=== PATIENT | male | born 1955 | race Caucasian/White ===

== ENCOUNTER → 2016-04-30 | Outpatient (REF) | payer BC ==
[2016-04-30 11:29] LABS: MEAN CORPUSCULAR HEMOGLOBIN 29.1 pg (27.0-33.0); MEAN CORPUSCULAR HGB CONC 32.3 g/dl (32.0-36.5); MEAN CORPUSCULAR VOLUME 90.2 fl (80.0-96.0); RED CELL DISTRIBUTION WIDTH 13.5 % (11.5-14.5); WHITE BLOOD COUNT 8.1 K/mm3 (4.0-10.0)
[2016-04-30 12:05] LABS: ALBUMIN 4.3 GM/DL (3.2-5.2); ALBUMIN/GLOBULIN RATIO 1.34 (1.00-1.93); ALKALINE PHOSPHATASE 92 U/L (45-117); ALT/SGPT 34 U/L (12-78); ANION GAP 7 MEQ/L (8-16); AST/SGOT 23 U/L (15-37); BILIRUBIN,TOTAL 0.5 MG/DL (0.2-1.0); BLOOD UREA NITROGEN 23 MG/DL (7-18); CALCIUM LEVEL 9.4 MG/DL (8.5-10.1); CARBON DIOXIDE LEVEL 29 MEQ/L (21-32); CHLORIDE LEVEL 106 MEQ/L (98-107); CHOLESTEROL LEVEL 240 MG/DL (<200); CREATININE FOR GFR 1.03 MG/DL (0.70-1.30); GLOMERULAR FILTRATION RATE > 60.0 (>56); GLUCOSE, FASTING 116 MG/DL (70-105); POTASSIUM SERUM 4.4 MEQ/L (3.5-5.1); SODIUM LEVEL 142 MEQ/L (136-145); TOTAL PROTEIN 7.5 GM/DL (6.4-8.2); TRIGLYCERIDES LEVEL 71 MG/DL (<150)
[2016-04-30 13:36] LABS: CONTROL LINE INT CTR LINE PRESENT; HIV SCRN NEGATIVE (NEGATIVE); HIV SCRN1 NEGATIVE (NEGATIVE)
== END ==
LOC: M SFHCCLAY 08:29
PROVIDERS: ATTEND Family Medicine
DX: R03.0 Elevated blood-pressure reading, without diagnosis of hypertension (principal); Z11.4 Encounter for screening for human immunodeficiency virus [HIV]; Z11.59 Encounter for screening for other viral diseases; Z85.46 Personal history of malignant neoplasm of prostate

== ENCOUNTER 2016-08-31 13:26 | Emergency (ER) | payer BC ==
[~2016-08-31] VITALS: Ht 182.9 cm; Wt 89.8 kg
[2016-08-31] MEDS ORDERED: CYCL10TA PO (13:42)
[2016-08-31] MEDS ORDERED: NAPR500T PO (13:42)
[2016-08-31] MEDS ORDERED: VALI5TAB PO (14:30)
[2016-08-31] MEDS ORDERED: KETOROLAC 60 MG/2 ML VIAL (J1885) IM ONE (14:30)
[2016-08-31] MEDS ORDERED: IBUP80TA PO (14:30)
[2016-08-31 14:58] VITALS: BP 183/90
== END 2016-08-31 15:05 | disposition home or self-care (01) ==
LOC: M ED 14:08
DX: S39.012A Strain of muscle, fascia and tendon of lower back, initial encounter (principal); X58.XXXA Exposure to other specified factors, initial encounter; Y92.018 Other place in single-family (private) house as the place of occurrence of the external cause; Y93.89 Activity, other specified; Y99.8 Other external cause status; Z79.899 Other long term (current) drug therapy
CPT/HCPCS: 96372; 99282; J1885

== ENCOUNTER 2016-11-07 08:55 | Emergency (ER) | payer BC ==
[~2016-11-07] VITALS: Ht 182.9 cm; Wt 86.4 kg
[~2016-11-07 08:55] MED LIST: CYCL10TA PO; IBUP80TA PO; NAPR500T PO; VALI5TAB PO
[2016-11-07] MEDS ORDERED: KETOROLAC 60 MG/2 ML VIAL (J1885) IM ONE (09:45)
[2016-11-07] MEDS ORDERED: MEDR4PAK PO (10:59)
[2016-11-07] MEDS ORDERED: NAPR500T3 PO (11:00)
[2016-11-07 11:19] VITALS: BP 143/91
--- NOTE | 2016-11-07 11:25 | REP ---
CT PELVIS WITHOUT CONTRAST: 11/07/2016. Clinical history: Pelvic pain with history of prostate carcinoma. Comparison: AP pelvis 11/06/2010. Findings: Noncontrast images through the pelvis with coronal and sagittal reconstructions provided. There is no ventral or inguinal hernia. No inguinal adenopathy. There are hernia mesh clips deep to the fascia of the left rectus and inguinal region. No bowel herniation. No diastases of the rectus muscles. Small bowel loops in the pelvis were unremarkable. The distal left colon, sigmoid and rectum are without inflammatory change. Multiple pelvic phleboliths. Bladder is nearly empty. There appears to have been prostatectomy. No pathologic sized pelvic lymphadenopathy. No ascites or mass. The bone windows show degenerative disc disease and disc space narrowing at L5-S1 with marginal osteophytes from L3-4 through L5-S1 anteriorly and posteriorly at L4-5. Disc bulge at L5-S1 is also noted. Vertebral bodies at those levels were unremarkable. There is some facet arthropathy. The bony sacral ala and foramina were symmetric and normal without destructive lesion. Minor sclerotic changes about the iliac margins of the SI joints were noted and otherwise unremarkable. The iliac bones, acetabuli and ischia are without fracture or destructive lesion. No sclerotic or destructive metastatic lesions. The hips show minor degenerative change without fracture, avulsion, AVN or other acute finding. No sclerotic bone lesions. Impression: 1. There is no CT evidence of ventral or inguinal hernia with a prior hernia repair on the left. 2. Evidence for prior prostatectomy, bladder empty, no dilated ureters or ureteral stone. 3. Degenerative disc changes greatest at L5-S1 in the lower lumbar spine with some facet arthropathy. No destructive lesions or metastatic bone lesions in the lumbar spine. 4. No pelvic, sacral or hip fracture or bony metastatic disease. Minor degenerative change. Signed by Baldemar Solano MD 11/07/2016 07:56 P
--- NOTE | 2016-11-07 11:31 | REP ---
CT LUMBAR SPINE WITHOUT CONTRAST: 11/07/2016. Clinical history: Lumbar radiculopathy. History of prostate carcinoma. Comparison: MRI lumbar spine 12/20/2014. Technique: Axial soft-tissue and bone windows with coronal and sagittal reconstructions provided. On the sagittal reconstructions. There is a few millimeters of anterolisthesis of L3 on 4 due to some facet arthritis. Disc space narrowing and vacuum phenomenon at that level. There is also vacuum phenomenon and disc space narrowing at the L5-S1 level. There is no anterolisthesis at that level. Disc space height at L4-5 and L2-3 slightly narrowed with the L1-2 level, the only normal disc height for spine. Spondylosis. There are anterior osteophytes at L3-4 through L5-S1. There are posterior osteophytes at L5-S1. There may be a couple of millimeters of retrolisthesis of L3 on 4. T12 vertebral body and the T12-L1 disc level were normal. There is no spinal or foraminal stenosis. Twelfth ribs were unremarkable. The L1 vertebral body intact without destructive lesion or compression deformity. The L1-2 disc space shows no bulge or herniation and no spinal or foraminal stenosis. At L2-3 there is mild disc bulge flattening ventral thecal sac. There appears to be a disc protrusion in the left foramen and left lateral disc. This could cause some foraminal encroachment on the left but not the right. At L3-4 there is ligamentum flavum and facet hypertrophy. A few millimeters of anterolisthesis and combining causes some central canal stenosis. Moderate foramina show encroachment with the bilateral L3 nerve root showing compression. The L4 vertebral body height is maintained. Broad-based disc bulge at L4-5 noted with the cross-sectional area of the canal marginally adequate. The foramina show some perineural fat without nerve root compression at this level. At L5-S1 posterior osteophytic ridging and broad-based disc bulge flattening the ventral thecal sac. Cross-sectional area of the canal adequate. The foramina show uncinate spurs, facet spurs, and encroachment of the L5 roots bilaterally due to these combined factors. No other findings. Impression: 1. Diffuse degenerative disc changes greatest at the L3-4 and L5-S1 with vacuum phenomenon and disc space narrowing at those two levels. Less narrowing at the L2-3 and L4-5 levels, none at L1-2. 2. No compression deformity or destructive lesions. No bony sclerotic findings to suggest metastatic disease. 3. A few millimeters of anterolisthesis of L3 on L4 and retrolisthesis of L4 on L5 due to facet arthropathy. 4. Broad-based disc bulge and left lateral disc protrusion at L2-3 causing central canal stenosis and foraminal encroachment likely compressing the L2 nerve root on the left. 5. Central canal stenosis greatest at L3-4 due to combined factors with some foraminal encroachment. 6. Mild central canal stenosis at L5-S1 with foraminal encroachment compressing L5 nerve roots due to combined factors. Signed by Baldemar Solano MD 11/07/2016 07:56 P
== END 2016-11-07 11:23 | disposition home or self-care (01) ==
LOC: M ED 08:55
DX: M54.16 Radiculopathy, lumbar region (principal); Z87.891 Personal history of nicotine dependence
CPT/HCPCS: 72131; 72192; 96372; 99282; J1885

== ENCOUNTER 2016-12-12 10:39 | Emergency (ER) | payer BC ==
[~2016-12-12] VITALS: Ht 182.9 cm; Wt 85.2 kg
[~2016-12-12 10:39] MED LIST changes: +MEDR4PAK PO; +NAPR500T3 PO
[2016-12-12] MEDS ORDERED: GABA-282 (10:52)
[2016-12-12] MEDS ORDERED: LEVI20TA39 (10:52)
[2016-12-12] MEDS ORDERED: TYLE325T5 PO (10:53)
[2016-12-12] MEDS ORDERED: NORCOTAB PO (13:30)
[2016-12-12] MEDS ORDERED: MIRA3350 PO (13:30)
[2016-12-12 13:40] VITALS: BP 126/84
== END 2016-12-12 13:40 | disposition home or self-care (01) ==
LOC: M ED 10:39
DX: M54.42 Lumbago with sciatica, left side (principal); M51.26 Other intervertebral disc displacement, lumbar region

== ENCOUNTER → 2017-05-06 | Outpatient (REF) | payer BC ==
[2017-05-06 17:45] LABS: ALBUMIN 4.4 GM/DL (3.2-5.2); ALBUMIN/GLOBULIN RATIO 1.69 (1.00-1.93); ALKALINE PHOSPHATASE 74 U/L (45-117); ALT/SGPT 29 U/L (12-78); ANION GAP 6 MEQ/L (8-16); AST/SGOT 22 U/L (7-37); BILIRUBIN,TOTAL 0.3 MG/DL (0.2-1.0); BLOOD UREA NITROGEN 16 MG/DL (7-18); CALCIUM LEVEL 9.1 MG/DL (8.5-10.1); CARBON DIOXIDE LEVEL 28 MEQ/L (21-32); CHLORIDE LEVEL 109 MEQ/L (98-107); CHOLESTEROL LEVEL 205 MG/DL (<200); CHOLESTEROL RISK RATIO 3.727 (<5); CREATININE FOR GFR 1.03 MG/DL (0.70-1.30); GLOMERULAR FILTRATION RATE > 60.0 (>56); GLUCOSE, FASTING 94 MG/DL (70-100); HDL CHOLESTEROL 55 MG/DL (>40); LDL CHOLESTEROL 132.6 MG/DL (<100); NON-HDL-C 150 MG/DL; POTASSIUM SERUM 5.1 MEQ/L (3.5-5.1); PSA SCREENING < 0.01 NG/ML (< 4.0); SODIUM LEVEL 143 MEQ/L (136-145); TRIGLYCERIDES LEVEL 87 MG/DL (<150)
== END ==
LOC: M SFHCCLAY 09:34
DX: Z00.00 Encounter for general adult medical examination without abnormal findings (principal); Z12.5 Encounter for screening for malignant neoplasm of prostate
CPT/HCPCS: 80053

== ENCOUNTER → 2017-05-07 | Outpatient (CLI) | payer BC ==
[2017-05-07 10:02] LABS: PSA SCREENING < 0.01 NG/ML (< 4.0)
== END ==
LOC: M LAB 08:57
DX: C61 Malignant neoplasm of prostate (principal)
CPT/HCPCS: G0103

== ENCOUNTER 2017-06-04 08:08 | Day surgery (SDC) | payer BC ==
[2017-06-04] MEDS: NS 1,000 ML IV (08:30)
[2017-06-04] MEDS ORDERED: PROPOFOL 200 MG/20 ML VIAL As Ordered (09:18)
== END 2017-06-04 09:58 | disposition home or self-care (01) ==
LOC: M SDC 08:08
DX: Z12.11 Encounter for screening for malignant neoplasm of colon (principal); Z80.0 Family history of malignant neoplasm of digestive organs; K57.30 Diverticulosis of large intestine without perforation or abscess without bleeding; K64.8 Other hemorrhoids; M54.9 Dorsalgia, unspecified; Z85.46 Personal history of malignant neoplasm of prostate
CPT/HCPCS: 45378

== ENCOUNTER → 2017-11-12 | Outpatient (CLI) | payer BC ==
[2017-11-12 14:12] LABS: PROSTATIC SPECIFIC AG MONITOR < 0.01 NG/ML (< 4.0)
== END ==
LOC: M LAB 13:11
DX: C61 Malignant neoplasm of prostate (principal)
CPT/HCPCS: 84153

== ENCOUNTER → 2018-05-06 | Outpatient (REF) | payer BC ==
[~2018-05-06] MED LIST changes: +GABA-843 PO; +LEVI20TA39 PO; +MIRA3350 PO; +NAPR-50 PO; +NAPR-885 PO; -NAPR500T PO; -NAPR500T3 PO; +NORCOTAB PO; +TYLE325T5 PO
[2018-05-06 16:52] LABS: ALBUMIN 4.2 GM/DL (3.2-5.2); ALT/SGPT 30 U/L (12-78); BILIRUBIN,TOTAL 0.6 MG/DL (0.2-1.0); BLOOD UREA NITROGEN 17 MG/DL (7-18); CALCIUM LEVEL 9.2 MG/DL (8.8-10.2); CARBON DIOXIDE LEVEL 27 MEQ/L (21-32); CHLORIDE LEVEL 106 MEQ/L (98-107); CHOLESTEROL LEVEL 203 MG/DL (<200); CHOLESTEROL RISK RATIO 2.985 (<5); CREATININE FOR GFR 0.94 MG/DL (0.70-1.30); GLOMERULAR FILTRATION RATE > 60.0 (>49); GLUCOSE, FASTING 94 MG/DL (70-100); HDL CHOLESTEROL 68 MG/DL (>40); LDL CHOLESTEROL 122 MG/DL (<100); NON-HDL-C 135 MG/DL; POTASSIUM SERUM 4.4 MEQ/L (3.5-5.1); SODIUM LEVEL 139 MEQ/L (136-145); TOTAL PROTEIN 7.2 GM/DL (6.4-8.2); TRIGLYCERIDES LEVEL 67 MG/DL (<150)
== END ==
LOC: M SFHCCLAY 11:17
PROVIDERS: ATTEND Family Medicine
DX: Z00.01 Encounter for general adult medical examination with abnormal findings (principal); E78.00 Pure hypercholesterolemia, unspecified

== ENCOUNTER → 2018-05-07 | Outpatient (CLI) | payer BC | LOC: M LAB 09:57 | PROVIDERS: ATTEND Urology | DX: C61 Malignant neoplasm of prostate (principal) ==

== ENCOUNTER → 2018-06-24 | Outpatient (CLI) | payer BC ==
--- NOTE | 2018-06-24 11:15 | REP ---
Left toe series: Four views. History: Monarticular arthritis left second toe. Findings: Multiple views of the left forefoot show moderate osteoarthritic narrowing and sclerosis and spur formation at the first MTP joint. There is soft tissue swelling affecting the second toe diffusely. No erosive change is seen. Joint spaces are preserved. There is a small zone of periarticular calcification at the medial aspect of the DIP joint of the second toe. Impression: Soft-tissue swelling affecting the second toe. A tiny periarticular calcification at the second toe DIP joint. No erosive change seen. 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 Electronically Signed by Luke Keita MD 06/24/2018 02:10 P
== END ==
LOC: M CLY 08:03
PROVIDERS: ATTEND Family Medicine
DX: M19.072 Primary osteoarthritis, left ankle and foot (principal)

== ENCOUNTER → 2019-05-12 | Outpatient (REF) | payer BC ==
[~2019-05-12] MED LIST changes: +HYDR-3715 PO; -NAPR-50 PO; +NAPR-837 PO; -NORCOTAB PO
[2019-05-12 12:01] LABS: HEMATOCRIT 45.6 % (42.0-52.0); HEMOGLOBIN 14.6 g/dl (13.5-17.5); MEAN CORPUSCULAR VOLUME 90.7 fl (80.0-96.0); PLATELET COUNT, AUTOMATED 181 10^3/uL (150-450); RED BLOOD COUNT 5.03 10^6/uL (4.30-6.10); WHITE BLOOD COUNT 5.3 10^3/uL (4.0-10.0)
[2019-05-12 12:31] LABS: ALT/SGPT 37 U/L (12-78); BILIRUBIN,TOTAL 0.5 MG/DL (0.2-1.0); BLOOD UREA NITROGEN 16 MG/DL (7-18); CALCIUM LEVEL 9.1 MG/DL (8.8-10.2); CARBON DIOXIDE LEVEL 29 MEQ/L (21-32); CHLORIDE LEVEL 108 MEQ/L (98-107); CHOLESTEROL LEVEL 162 MG/DL (<200); CREATININE FOR GFR 0.89 MG/DL (0.70-1.30); GLOMERULAR FILTRATION RATE > 60.0 (>49); GLUCOSE, FASTING 89 MG/DL (70-100); HDL CHOLESTEROL 60 MG/DL (>40); LDL CHOLESTEROL 83 MG/DL (<100); NON-HDL-C 102 MG/DL; POTASSIUM SERUM 4.8 MEQ/L (3.5-5.1); SODIUM LEVEL 140 MEQ/L (136-145); TOTAL PROTEIN 6.8 GM/DL (6.4-8.2); TRIGLYCERIDES LEVEL 96 MG/DL (<150)
== END ==
LOC: M SFHCCLAY 09:16
PROVIDERS: ATTEND Family Medicine
DX: E78.00 Pure hypercholesterolemia, unspecified (principal); Z85.46 Personal history of malignant neoplasm of prostate

== ENCOUNTER → 2019-07-07 | Outpatient (CLI) | payer BC | LOC: M LAB 11:53 | PROVIDERS: ATTEND Nurse Practitioner Family | DX: C61 Malignant neoplasm of prostate (principal) ==

== ENCOUNTER 2020-04-03 17:54 | Inpatient (IN) | payer BC ==
[~2020-04-03] VITALS: Ht 180.3 cm; Wt 93.0 kg
[~2020-04-03 17:54] MED LIST changes: +CYCL-707 PO; -CYCL10TA PO
[2020-04-03] MEDS ORDERED: ATOR1TAB19 PO (18:14)
[2020-04-03] MEDS ORDERED: TIZA4TAB4 PO (18:14)
[2020-04-03] MEDS ORDERED: ASPIRIN 81 MG CHEW TABLET PO ONE (18:30)
[2020-04-03] MEDS ORDERED: NS 1,000 ML IV ONE (18:30)
[2020-04-03 18:34] LABS: BASO # 0.1 10^3/uL (0.0-0.2); BASO % 0.8 % (0.0-1.0); EOS # 0.2 10^3/uL (0.0-0.5); EOS % 2.5 % (0.0-3.0); HEMATOCRIT 45.3 % (42.0-52.0); HEMOGLOBIN 14.3 g/dl (13.5-17.5); LYMPH # 1.8 10^3/uL (1.5-5.0); LYMPH % 29.8 % (24.0-44.0); MEAN CORPUSCULAR HGB CONC 31.6 g/dl (32.0-36.5); MEAN CORPUSCULAR VOLUME 91.9 fl (80.0-96.0); MONO # 0.9 10^3/uL (0.0-0.8); MONO % 14.8 % (0.0-5.0); NEUTROPHILS # 3.2 10^3/uL (1.5-8.5); NEUTROPHILS % 51.9 % (36.0-66.0); PLATELET COUNT, AUTOMATED 166 10^3/uL (150-450); RED BLOOD COUNT 4.93 10^6/uL (4.30-6.10); WHITE BLOOD COUNT 6.1 10^3/uL (4.0-10.0)
[2020-04-03 18:38] LABS: INR 0.92; PROTHROMBIN TIME 12.6 SECONDS (12.5-14.3)
--- NOTE | 2020-04-03 18:47 | REP ---
INDICATION: CHEST PAIN COMPARISON: 09/04/2013 TECHNIQUE: Portable AP view of the chest FINDINGS: The mediastinum and cardiac silhouette are stable and within normal limits for portable technique. The lung castellano are clear without acute consolidation, effusion, or pneumothorax. Skeletal structures are intact. IMPRESSION: No acute cardiopulmonary process appreciated. <Electronically signed by Tod Ha > 04/03/20 0003
[2020-04-03 19:03] LABS: ALBUMIN 3.9 GM/DL (3.2-5.2); ALT/SGPT 36 U/L (12-78); BILIRUBIN,DIRECT < 0.1 MG/DL (0.0-0.2); BILIRUBIN,TOTAL 0.3 MG/DL (0.2-1.0); BLOOD UREA NITROGEN 15 MG/DL (7-18); CALCIUM LEVEL 9.1 MG/DL (8.8-10.2); CARBON DIOXIDE LEVEL 28 MEQ/L (21-32); CHLORIDE LEVEL 108 MEQ/L (98-107); CK-MB VALUE MASS 3.1 NG/ML (<3.6); CPK CREATINE PHOSPHOKINASE 212 U/L (39-308); CREATININE FOR GFR 1.13 MG/DL (0.70-1.30); GLOMERULAR FILTRATION RATE > 60.0 (>49); GLUCOSE, FASTING 96 MG/DL (70-100); MB/CK RELATIVE INDEX 1.46 (< OR =4); POTASSIUM SERUM 4.1 MEQ/L (3.5-5.1); SODIUM LEVEL 140 MEQ/L (136-145); TOTAL PROTEIN 6.9 GM/DL (6.4-8.2)
[2020-04-03 19:04] LABS: FREE T4 0.82 NG/DL (0.76-1.46); LIPASE 162 U/L (73-393); MAGNESIUM LEVEL 2.3 MG/DL (1.8-2.4); NT-PRO BNP 214 PG/ML (<125); TROPONIN I < 0.02 NG/ML (< 0.10)
[2020-04-03 19:58] LABS: ETHYL ALCOHOL (ETHANOL) 0.005 % (0.000-0.010)
[2020-04-03] MEDS ORDERED: GABA-1171 PO (19:58)
[2020-04-03] MEDS ORDERED: HM I1TAB PO (19:58)
[2020-04-03] MEDS ORDERED: VITMTA PO (19:58)
[2020-04-03] MEDS ORDERED: ALEV220T22 PO (19:58)
[2020-04-03] MEDS ORDERED: ACET500T15 PO (19:58)
[2020-04-03] MEDS ORDERED: MAALOX 30 ML SUSP *UDC PO PRN (21:00)
[2020-04-03] MEDS ORDERED: ACETAMINOPHEN TAB 650MG DOSE (2X325MG) PO PRN (21:00)
[2020-04-03] MEDS ORDERED: MOM 30ML SUSPENSION UDC PO PRN (21:00)
[2020-04-03] MEDS ORDERED: tiZANidine 4 MG TAB PO PRN (21:00)
[2020-04-03] MEDS ORDERED: ATORVASTATIN 10 MG TAB PO SCH (21:00)
[2020-04-03 22:49] LABS: RSV AMPLIFICATION NEGATIVE (NEGATIVE)
--- NOTE | 2020-04-03 23:01 | HPEPDOC ---
General Date of Admission Apr 03, 2020 at 20:49 Date of Service: Apr 03, 2020 Attending Physician: JOSH WALLACE MD Chief Complaint The patient is a 64-year-old male admitted with a reason for visit of Arrhythmia,Ventricular. Source: Patient Exam Limitations: No limitations History of Present Illness History of present illness: 64-year-old male patient with no known medical comorbidities presented to the emergency department with dizziness and nausea around 3 PM and lasted about 2 minutes. He came home and his checked his blood pressure which was 140/60 and his heart rate by pulse oximetry was 32. He reports feeling tired and nauseated during this time. He had similar dizziness episodes in the past couple of weeks which lasted about less than a minute. He reports drinking 2 large coffee daily, and ate a lot of chocolate during the holidays. He denies having any chest pains, shortness of breath, headache, visual changes, palpitations, fever or chills. Past medical history: - Degenerative disc disease - Prostate cancer Past surgical history: - Prostate surgery 5 years ago - Hernia surgery Social history: - Remote smoking history more than 40 years ago for a few years - Drinks alcohol 2-3 beers per day, 5-6 beers over the weekend. - Denies illicit/recreational drug use Family History: - Father had a history of angina in mid 50s, and a pacemaker and 60s. - Mother in her 70s from liver cancer. REVIEW OF SYSTEMS: Constitutional: Denies having fever, chills, night sweats, weight loss, headaches. Eyes: Denies any blurry vision or double vision. ENT: Denies any dysphagia, odynophagia, ear discharge. Cardiovascular: Denies any chest pain or palpitations. Respiratory: Denies shortness of breath and cough. Gastrointestinal (GI): Denies any nausea or vomiting. Genitourinary: Denies dysuria, hematuria. Musculoskeletal: Reports having chronic back pain and takes medication for it. Skin: Denies any rashes or ulcers. Hematology/Oncology: Denies any easy bleeding or bruising. Endocrine: Denies cold intolerance, heat intolerance, polydipsia, polyphagia, polyuria All other review of systems is negative. PHYSICAL EXAMINATION: General: Patient is awake, alert, oriented times three, laying in bed , no apparent distress. Eyes: Conjunctiva clear, pupils equal round and reactive to light and accommodation. EOM full, Fundus: not visualized. ENT: Has hearing aids in both ears. No nasal deviation, oropharynx clear with no lesions/erythema. Neck: supple, no masses, trachea midline, no thyroid nodules, masses, tenderness or enlargement. Cardiovascular: S1, S2, normal rhythm, no murmur, rub, or gallop. Pulses: Carotid, radial, posterior tibialis and pedal 3+ symmetric, no edema. Respiratory: Chest is clear to auscultation bilaterally, no rhonchi, wheezes or rubs. Abdomen: Soft, bowel sounds positive, no bruits. Nontender on palpation. Extremities: No clubbing or cyanosis. No edema. Spine: No kyphosis, no paraspinal tenderness, no costovertebral tenderness. Central nervous system (CORK CUTTER): Awake, alert and fully oriented. Cranial nerves III-XII grossly intact. Motor: Strength normal, patient moves all extremities. Sensory: grossly normal to touch. Skin: No rashes, lesions, ulcerations, subcutaneous nodules or induration. Assessment: 64 year-old male patient with no know medical comorbidities had an episode of dizziness lasting about 2 minutes and nausea, tiredness. His blood pressure checked in the evening after the episode was 140/60 and heart rate was 32 with pulse ox at home. He reports taking 2pills of ibuprofen as he was having back pain in the evening. In the ED his initial blood pressure 150/80 mmHg and HR 55. During my interview with him in ED his BP has spiked to 182/121mm Hg but the repeat BP came down to 152/91mm Hg without any medication. The hospitalist service was contacted for further management. Plan: Symptomatically bradycardia: - Patient has an EKG showing bigeminy. - Likely due to alcohol, caffeine, recent chocolate intake, drug-induced, - Patient is on tizanidine muscle relaxant at home which has a side effect of causing bradycardia. - ED contacted Dr. Bates exterminator helper termite palaeontologist, he recommended admission and overnight observation on telemetry. - Cardiology was consulted and they recommended monitoring the patient overnight and if patient is asymptomatic, doing well overnight and repeat labs normal in a.m. he can be seen as outpatient in cardiology unit. - Order placed for Echo, to look for any structural abnormalities. - Will monitor overnight, and get repeat troponin and electrolytes in the a.m. - Will continue his atorvastatin. Degenerative disc disease: - Patient is on gabapentin at home for back pain. - Will continue gabapentin. - Hold his tizanidine , muscle relaxant for now. - If Patient complains of back pain can give cyclobenzaprine, muscle relaxant as it doesn't have side effects of bradycardia. DVT prophylaxis: - Teds and sequentials Disposition: If patient is asymptomatic overnight, and morning labs are normal, he can be discharged home with an outpatient appointment for cardiology follow- up. Home Medications Scheduled Atorvastatin Calcium (Atorvastatin Calcium) 10 Mg Tablet, 10 MG PO QHS, (Reported) Gabapentin (Gabapentin) 100 Mg Capsule, 200 MG PO BID, (Reported) Multivitamins (Thera M Plus Tablet) 1 Each Tablet, 1 TAB PO DAILY, (Reported) Scheduled PRN Acetaminophen (Acetaminophen) 500 Mg Tablet, 1,000 MG PO Q6H PRN for PAIN, (Reported) Ibuprofen (Ibuprofen Ib) 200 Mg Tablet, 400 MG PO Q4H PRN for HEADACHE, (Reported) Naproxen Sodium (Aleve) 220 Mg Tablet, 220 MG PO BID PRN for BACK PAIN, (Reported) Tizanidine HCl (Tizanidine HCl) 4 Mg Tablet, 4 MG PO QHS PRN for BACK PAIN, (Reported) Vardenafil HCl (Levitra) 20 Mg Tab, 20 MG PO ASDIRECTED PRN for ERECTILE DYSFUNCTION, (Reported) Allergies Coded Allergies: No Known Allergies (Verified , 11/07/16) A-FIB/CHADSVASC A-FIB History Current/History of A-Fib/PAF?: No Vital Signs Vital Signs Date Time Temp Pulse Resp B/P (MAP) Pulse Ox O2 Delivery O2 Flow Rate FiO2 04/03/20 18:15 04/03/20 18:09 63 22 99 Room Air 04/03/20 17:57 97.5 Laboratory Data Labs 24H Laboratory Tests 2 04/03/20 18:10: Immature Granulocyte % (Auto) 0.2, Neutrophils (%) (Auto) 51.9, Lymphocytes (%) (Auto) 29.8, Monocytes (%) (Auto) 14.8H, Eosinophils (%) (Auto) 2.5, Basophils (%) (Auto) 0.8, Neutrophils # (Auto) 3.2, Lymphocytes # (Auto) 1.8, Monocytes # (Auto) 0.9H, Eosinophils # (Auto) 0.2, Basophils # (Auto) 0.1, Nucleated Red Blood Cells % (auto) 0.0, Prothrombin Time 12.6, Prothromb Time International Ratio 0.92, Anion Gap 4L, Glomerular Filtration Rate > 60.0, Calcium Level 9.1, Magnesium Level 2.3, Total Bilirubin 0.3, Direct Bilirubin < 0.1, Aspartate Amino Transf (AST/SGOT) 23, Alanine Aminotransferase (ALT/SGPT) 36, Alkaline Phosphatase 97, Total Creatine Kinase 212, Creatine Kinase MB 3.1, Creatine Kinase MB Relative Index 1.46, Troponin I < 0.02, MZ-Dak-T-Type Natriuretic Peptide 214H, Total Protein 6.9, Albumin 3.9, Albumin/Globulin Ratio 1.3, Lipase 162, Thyroid Stimulating Hormone (TSH) 1.050, Free Thyroxine 0.82, Ethyl Alcohol Level 0.005 CBC/BMP Laboratory Tests 04/03/20 18:10 Plan / VTE VTE Prophylaxis Ordered?: Yes GME ATTESTATION GME ATTESTATION My faculty preceptor for this patient encounter was physically present during the encounter and was fully available. All aspects of the patient interview, examination, medical decision making process, and medical care plan development were reviewed and approved by the faculty preceptor. The faculty preceptor is aware and concurs with the plan as stated in the body of this note and will attest to such by his/her cosignature. ATTENDING NOTE ISharon, have independently examined this patient and performed my own physical exam, as well as reviewed the documentation and edited where necessary. I have discussed in detail with the resident / student the findings and plan of treatment as documented by the resident / student and edited their note. I agree with their findings and treatment plan and have edited their documentation. I will continue to follow the patient during this hospital stay. Gila Nielsen MD Apr 03, 2020 23:00 JOSH WALLACE MD Apr 04, 2020 06:12
[2020-04-04] MEDS ORDERED: LORazepam 2 MG TAB PO PRN (00:30)
[2020-04-04] MEDS: THIAMINE 100 MG TAB PO SCH ×2 (01:31→11:07)
[2020-04-04] MEDS: GABAPENTIN 100 MG CAP PO SCH ×2 (01:31→11:08)
[2020-04-04] MEDS: DOCUSATE SODIUM 100MG CAPSULE PO SCH ×2 (01:32→11:08)
[2020-04-04 07:50] LABS: HEMATOCRIT 44.7 % (42.0-52.0); HEMOGLOBIN 14.7 g/dl (13.5-17.5); MEAN CORPUSCULAR HEMOGLOBIN 30.4 pg (27.0-33.0); MEAN CORPUSCULAR HGB CONC 32.9 g/dl (32.0-36.5); MEAN CORPUSCULAR VOLUME 92.5 fl (80.0-96.0); PLATELET COUNT, AUTOMATED 155 10^3/uL (150-450); RED BLOOD COUNT 4.83 10^6/uL (4.30-6.10); WHITE BLOOD COUNT 4.4 10^3/uL (4.0-10.0)
[2020-04-04 08:15] LABS: INR 0.95; PROTHROMBIN TIME 12.9 SECONDS (12.5-14.3)
[2020-04-04 08:16] LABS: BLOOD UREA NITROGEN 12 MG/DL (7-18); CALCIUM LEVEL 8.7 MG/DL (8.8-10.2); CARBON DIOXIDE LEVEL 24 MEQ/L (21-32); CHLORIDE LEVEL 111 MEQ/L (98-107); CREATININE FOR GFR 1.01 MG/DL (0.70-1.30); GLOMERULAR FILTRATION RATE > 60.0 (>49); GLUCOSE, FASTING 96 MG/DL (70-100); MAGNESIUM LEVEL 2.3 MG/DL (1.8-2.4); PARTIAL THROMBOPLASTIN TIME 27.5 SECONDS (24.2-38.5); SODIUM LEVEL 141 MEQ/L (136-145)
[2020-04-04] MEDS ORDERED: MULTIVITAMINS/MINERALS THERAP 1 TAB PO SCH (09:00)
[2020-04-04] MEDS ORDERED: FOLIC ACID 1 MG TAB PO SCH (09:00)
[2020-04-04 09:36] LABS: TROPONIN I < 0.02 NG/ML (< 0.10)
--- NOTE | 2020-04-04 13:33 | ECGEPIP ---
[facility] - ED Test Date: 2020-04-03 Pat Name: AYDIN GARCIA Department: Room: [place] [address] Gender: Male Cae Engineer: JUAN DIEGO : 1955 Requested By: ASHU BEASLEY Order Number: [id number] Reading MD: Ciara Arevalo Measurements Intervals [place] Rate: 65 P: 74 [place]: 163 QRS: 41 QRSD: 92 T: 31 QT: 392 QTc: 409 Interpretive Statements SINUS RHYTHM WITH FREQUENT VENTRICULAR PREMATURE COMPLEXES IN A BIGEMINAL PATTERN POSSIBLE LEFT ATRIAL ENLARGEMENT MINIMAL ST DEPRESSION ABNORMAL RHYTHM ECG CLINICAL CORRELATION Electronically Signed on 04-04-2020 13:32:48 EST by Ciara Arevalo
[2020-04-04] MEDS ORDERED: THIA100TA PO (15:41)
[2020-04-04] MEDS ORDERED: FOLI1TAB11 PO (15:41)
[2020-04-04] MEDS ORDERED: VITMTA PO (15:41)
--- NOTE | 2020-04-04 16:26 | DS.PDOC ---
Discharge Summary General Date of Admission Apr 03, 2020 at 20:49 Date of Discharge 04/04/2020 Discharge Summary PROCEDURES PERFORMED DURING STAY: [None]. ADMITTING DIAGNOSES / DISCHARGE DIAGNOSES: Bigeminy / Frequent PVCs Degenerative disc disease DVT prophylaxis COMPLICATIONS/CHIEF COMPLAINT: Nausea HISTORY OF PRESENT ILLNESS: Patient is a 64-year-old male with a past medical history of degenerative disc disease and prostate cancer who presented to the emergency room after experiencing nausea around 3 PM patient reported that it was a short duration. His who is a registered nurse had checked his blood pressure, which was normal, however, found that his heart rate was in the 30s. She had advised him to go to the emergency room for further evaluation. While the emergency room, patient was found to have an electrocardiogram that was consistent with multiple PVCs and bigeminy. Patient denies any chest pain, shortness of breath, palpitations, any further nausea, vomiting, abdominal pain, diarrhea, or urinary discomfort. He did attest to drinking several cups of coffee and consuming alcohol regularly. Patient reports that he has been regularly taking tizanidine for his back pain. HOSPITAL COURSE: Bigeminy / Frequent PVCs - EKG was reviewed and does reveal evidence of bigeminy - Limited strip reveals that patient is in sinus rhythm and has multiple episodes of PVCs - Troponin trend has been negative - Electrolytes are within normal limits - Echo has been complete and patient will follow up outpatient with Dr. Bates for results - I have discussed the case in detail with Dr. Bates, cardiology; patient will have outpatient follow-up within the next 7 days; patient has been instructed to avoid tizanidine alcohol and caffeinated beverages - Patient has been advised to remain compliant with treatment plan and medications - I have called and discussed the details of the plan with his as well Degenerative disc disease - c/w Gabapentin / Tylenol PRN - Patient follows with pain management as an outpatient DVT prophylaxis - c/w TEDs/ Sequentials DISCHARGE MEDICATIONS: Please see below. ALLERGIES: Please see below. PHYSICAL EXAMINATION ON DISCHARGE: Vitals (See below) General: Sitting up in bed, appears to be comfortable, awake, alert and oriented 3 HEENT: NC, AT CVS: +S1S2 Lungs: Fair air entry b/l, no visual wheezing, rhonchi or rales Abdomen: Soft, nondistended and nontender Extremities: No evidence of edema, - Calf tenderness LABORATORY DATA: Please see below. ACTIVITY: [As tolerated]. DISCHARGE PLAN: Follow-up with primary care provider, and cardiology within the next 7 days Remain compliant with treatment plan and medications Return to the ER if you experience any problems DISPOSITION: Home DISCHARGE CONDITION: [Stable]. TIME SPENT ON DISCHARGE: 35 minutes. Vital Signs/I&Os Vital Signs Date Time Temp Pulse Resp B/P (MAP) Pulse Ox O2 Delivery O2 Flow Rate FiO2 04/04/20 11:45 59 18 96 Room Air 04/04/20 11:17 155/73 (100) 04/03/20 17:57 97.5 I&O- Last 24 Hours up to 6 AM 04/04/20 06:00 Intake Total 1000 ml Balance 1000 ml Laboratory Data Labs 24H Laboratory Tests 2 04/03/20 18:10: Immature Granulocyte % (Auto) 0.2, Neutrophils (%) (Auto) 51.9, Lymphocytes (%) (Auto) 29.8, Monocytes (%) (Auto) 14.8H, Eosinophils (%) (Auto) 2.5, Basophils (%) (Auto) 0.8, Neutrophils # (Auto) 3.2, Lymphocytes # (Auto) 1.8, Monocytes # (Auto) 0.9H, Eosinophils # (Auto) 0.2, Basophils # (Auto) 0.1, Nucleated Red Blood Cells % (auto) 0.0, Prothrombin Time 12.6, Prothromb Time International Ratio 0.92, Anion Gap 4L, Glomerular Filtration Rate > 60.0, Calcium Level 9.1, Magnesium Level 2.3, Total Bilirubin 0.3, Direct Bilirubin < 0.1, Aspartate Amino Transf (AST/SGOT) 23, Alanine Aminotransferase (ALT/SGPT) 36, Alkaline Phosphatase 97, Total Creatine Kinase 212, Creatine Kinase MB 3.1, Creatine Kinase MB Relative Index 1.46, Troponin I < 0.02, ME-Vux-U-Type Natriuretic Peptide 214H, Total Protein 6.9, Albumin 3.9, Albumin/Globulin Ratio 1.3, Lipase 162, Thyroid Stimulating Hormone (TSH) 1.050, Free Thyroxine 0.82, Ethyl Alcohol Level 0.005 04/03/20 22:02: Coronavirus (COVID-19)(PCR) NEGATIVE, Influenza Type A (RT-PCR) NEGATIVE, Influenza Type B (RT-PCR) NEGATIVE, Respiratory Syncytial Virus (PCR) NEGATIVE 04/04/20 07:38: Nucleated Red Blood Cells % (auto) 0.0, Prothrombin Time 12.9, Prothromb Time International Ratio 0.95, Anion Gap 6L, Glomerular Filtration Rate > 60.0, Calcium Level 8.7L, Magnesium Level 2.3, Troponin I < 0.02, Activated Partial Thromboplast Time 27.5, Lactic Acid Level 1.1 CBC/BMP Laboratory Tests 04/03/20 18:10 04/04/20 07:38 Microbiology Microbiology 04/04/20 Blood Culture, Received Pending Discharge Medications Scheduled Atorvastatin Calcium (Atorvastatin Calcium) 10 Mg Tablet, 10 MG PO QHS, (Reported) Folic Acid (Folic Acid) 1 Mg Tablet, 1 MG PO DAILY Gabapentin (Gabapentin) 100 Mg Capsule, 200 MG PO BID, (Reported) Multivitamins (Thera M Plus Tablet) 1 Each Tablet, 1 TAB PO DAILY, (Reported) Multivitamins (Thera M Plus Tablet) 1 Each Tablet, 1 TAB PO QAM Allow substitution for any multivitamins Thiamine Hcl (Vitamin B-1) 100 Mg Tablet, 100 MG PO BID Scheduled PRN Acetaminophen (Acetaminophen) 500 Mg Tablet, 1,000 MG PO Q6H PRN for PAIN, (Rep orted) Ibuprofen (Ibuprofen Ib) 200 Mg Tablet, 400 MG PO Q4H PRN for HEADACHE, (Reported) Naproxen Sodium (Aleve) 220 Mg Tablet, 220 MG PO BID PRN for BACK PAIN, (Reported) Allergies Coded Allergies: No Known Allergies (Verified , 11/07/16) WILLY SALGADO MD Apr 04, 2020 16:26
--- NOTE | 2020-04-04 16:32 | ECGEPIP ---
[facility] Test Date: 2020-04-04 Pat Name: AYDIN GARCIA Department: Room: [place] [address] Gender: Male Atlassian Administrator: SINDI : 1955 Requested By: WILLY SALGADO Order Number: [id number] Reading MD: Doc Hart Measurements Intervals [place] Rate: 70 P: 68 [place]: 163 QRS: 47 QRSD: 89 T: 38 QT: 433 QTc: 469 Interpretive Statements Normal sinus rhythm with PVCs Consider prior anteroseptal NH, age indeterminate Nonspecific ST-T wave abnormalities No significant change when compared to prior tracing of 04/03/2020 Electronically Signed on 04-04-2020 16:32:03 EST by Doc Hart
[2020-04-04 16:57] VITALS: BP 144/76
--- NOTE | 2020-04-05 10:22 | ECHO ---
DATE OF PROCEDURE: 04/04/2020 Age: 64 Gender: Male Height: 71 inches Weight: 205 pounds Body surface area: 2.13 m2 PATIENT LOCATION: Inpatient [facility] [place]. REFERRING PHYSICIAN: Gila Nielsen MD. INDICATION: Abnormal EKG frequent PVCs. MEASUREMENTS: 2D Measurements: RV 3.6 cm LV 4.6 cm Septum 1.3 cm Posterior wall 1.2 cm Aortic Root 3.5 cm LA 4.4 cm LVEF 50% Doppler Measurements: AV 1.15 m/s LVOT 0.75 m/s MV-E 68, A 66, E/A ratio 1 Early mitral deceleration time 201 msec E prime medial 7.7, A prime medial 10, E prime lateral 8.2 Average E/E prime ratio 8.6/PCWP 12.5 mmHg PV 0.96 m/s Pulmonary artery acceleration time 148 msec RVSP 27 mmHg IVC 2.1 cm COMMENTS: Normal sinus rhythm/sinus bradycardia without intraventricular conduction disturbance. Occasional to frequent isolated PVCs. M-mode and two-dimensional echocardiography was performed with pulse, continuous wave, color flow, and tissue Doppler studies. Borderline hypertrophied left ventricle with slight global LV hypokinesis. Mildly dilated left atrium with pseudonormal LV inflow tract pattern - consistent with grade 2 LV diastolic dysfunction, but current estimated mean left atrial pressure within normal limits. Normal right heart chamber sizes and motion and estimated pulmonary arterial pressure. Normal IVC size and collapse against an elevated central venous pressure. Normal aortic dimensions. Normal appearing aortic valve without functional abnormality. Normal appearing mitral valve with very mild mitral insufficiency (physiologic). Normal appearing tricuspid valve with very mild insufficiency (physiologic). No apparent intracardiac mass or pericardial effusion. MTDD
== END 2020-04-04 17:33 | disposition home or self-care (01) | DRG 201 ==
LOC: M ED 17:54 → M ED INP 20:49
PROVIDERS: ADMIT Family Medicine; ATTEND Internal Medicine
DX: I49.3 Ventricular premature depolarization (principal); R00.1 Bradycardia, unspecified; Z85.46 Personal history of malignant neoplasm of prostate; Z79.899 Other long term (current) drug therapy

== ENCOUNTER → 2020-04-18 | Outpatient (REF) | payer BC ==
[~2020-04-18] MED LIST changes: +ACET500T15 PO; +ALEV220T22 PO; +ATOR1TAB19 PO; +FOLI1TAB11 PO; +GABA-1171 PO; +GABA-282 PO; -GABA-843 PO; +HM I1TAB PO; +THIA100TA PO; +TIZA4TAB4 PO; +VITMTA PO
[2020-04-19 13:04] LABS: ALBUMIN 4.1 GM/DL (3.2-5.2); ALT/SGPT 40 U/L (12-78); BILIRUBIN,TOTAL 0.3 MG/DL (0.2-1.0); BLOOD UREA NITROGEN 17 MG/DL (7-18); CALCIUM LEVEL 9.2 MG/DL (8.8-10.2); CARBON DIOXIDE LEVEL 28 MEQ/L (21-32); CHLORIDE LEVEL 107 MEQ/L (98-107); CREATININE FOR GFR 1.14 MG/DL (0.70-1.30); FERRITIN 116 NG/ML (26-388); FREE T3 2.7 PG/ML (2.2-4.0); GLOMERULAR FILTRATION RATE > 60.0 (>49); GLUCOSE, FASTING 91 MG/DL (70-100); IRON (FE) 98 UG/DL (65-175); MAGNESIUM LEVEL 2.3 MG/DL (1.8-2.4); SODIUM LEVEL 140 MEQ/L (136-145); TOTAL PROTEIN 6.9 GM/DL (6.4-8.2)
[2020-04-19 13:05] LABS: POTASSIUM SERUM 6.2 MEQ/L (3.5-5.1)
== END ==
LOC: M SFHCCLAY 15:45
PROVIDERS: ATTEND Family Medicine
DX: I49.8 Other specified cardiac arrhythmias (principal); I51.9 Heart disease, unspecified

== ENCOUNTER → 2020-04-22 | Outpatient (CLI) | payer BC | LOC: M WUC 09:25 | PROVIDERS: ATTEND Family Medicine | DX: E87.5 Hyperkalemia (principal) ==

== ENCOUNTER → 2020-07-17 | Outpatient (CLI) | payer BC ==
[2020-07-17 11:34] LABS: HEMATOCRIT 48.1 % (42.0-52.0); HEMOGLOBIN 15.6 g/dl (13.5-17.5); MEAN CORPUSCULAR HEMOGLOBIN 29.7 pg (27.0-33.0); MEAN CORPUSCULAR HGB CONC 32.4 g/dl (32.0-36.5); MEAN CORPUSCULAR VOLUME 91.4 fl (80.0-96.0); PLATELET COUNT, AUTOMATED 179 10^3/uL (150-450); RED BLOOD COUNT 5.26 10^6/uL (4.30-6.10); WHITE BLOOD COUNT 5.5 10^3/uL (4.0-10.0)
[2020-07-17 14:19] LABS: ALBUMIN 4.1 GM/DL (3.2-5.2); ALT/SGPT 36 U/L (12-78); BILIRUBIN,TOTAL 0.4 MG/DL (0.2-1.0); BLOOD UREA NITROGEN 14 MG/DL (7-18); CALCIUM LEVEL 9.6 MG/DL (8.8-10.2); CARBON DIOXIDE LEVEL 23 MEQ/L (21-32); CHLORIDE LEVEL 108 MEQ/L (98-107); CHOLESTEROL LEVEL 186 MG/DL (<200); CHOLESTEROL RISK RATIO 2.735 (<5); CREATININE FOR GFR 0.89 MG/DL (0.70-1.30); GLOMERULAR FILTRATION RATE > 60.0 (>49); GLUCOSE, FASTING 101 MG/DL (70-100); HDL CHOLESTEROL 68 MG/DL (>40); LDL CHOLESTEROL 102 MG/DL (<100); NON-HDL-C 118 MG/DL; POTASSIUM SERUM 4.6 MEQ/L (3.5-5.1); PROSTATIC SPECIFIC AG MONITOR < 0.01 NG/ML (< 4.00); SODIUM LEVEL 139 MEQ/L (136-145); TOTAL PROTEIN 7.1 GM/DL (6.4-8.2); TRIGLYCERIDES LEVEL 80 MG/DL (<150)
== END ==
LOC: M LAB 09:17
PROVIDERS: ATTEND Family Medicine
DX: Z85.46 Personal history of malignant neoplasm of prostate (principal); E78.00 Pure hypercholesterolemia, unspecified; M13.10 Monoarthritis, not elsewhere classified, unspecified site

== ENCOUNTER → 2021-06-27 | Outpatient (CLI) | payer BC ==
[~2021-06-27] MED LIST changes: -HM I1TAB PO; +IBUP-1452 PO; +TIZA10TA PO; -TIZA4TAB4 PO
[2021-06-27 10:49] LABS: BASO % 0.9 % (0.0-1.0); EOS # 0.1 10^3/uL (0.0-0.5); HEMATOCRIT 45.5 % (42.0-52.0); HEMOGLOBIN 15.2 g/dl (13.5-17.5); LYMPH # 1.5 10^3/uL (1.5-5.0); LYMPH % 32.4 % (24.0-44.0); MEAN CORPUSCULAR HGB CONC 33.4 g/dl (32.0-36.5); MEAN CORPUSCULAR VOLUME 89.9 fl (80.0-96.0); MONO # 0.7 10^3/uL (0.0-0.8); MONO % 14.3 % (2.0-8.0); NEUTROPHILS # 2.3 10^3/uL (1.5-8.5); NEUTROPHILS % 49.2 % (36.0-66.0); PLATELET COUNT, AUTOMATED 163 10^3/uL (150-450); RED BLOOD COUNT 5.06 10^6/uL (4.30-6.10); WHITE BLOOD COUNT 4.7 10^3/uL (4.0-10.0)
[2021-06-27 11:09] LABS: ALT/SGPT 33 U/L (12-78); BILIRUBIN,TOTAL 0.3 MG/DL (0.2-1.0); BLOOD UREA NITROGEN 17 MG/DL (7-18); CALCIUM LEVEL 9.1 MG/DL (8.8-10.2); CARBON DIOXIDE LEVEL 28 MEQ/L (21-32); CHLORIDE LEVEL 109 MEQ/L (98-107); CHOLESTEROL LEVEL 166 MG/DL (<200); CREATININE FOR GFR 1.06 MG/DL (0.70-1.30); GLOMERULAR FILTRATION RATE > 60.0 (>49); GLUCOSE, FASTING 87 MG/DL (70-100); HDL CHOLESTEROL 60 MG/DL (>40); POTASSIUM SERUM 4.6 MEQ/L (3.5-5.1); SODIUM LEVEL 140 MEQ/L (136-145); TRIGLYCERIDES LEVEL 70 MG/DL (<150)
[2021-06-27 11:10] LABS: ALBUMIN 3.8 GM/DL (3.2-5.2); CHOLESTEROL RISK RATIO 2.766 (<5); LDL CHOLESTEROL 92 MG/DL (<100); NON-HDL-C 106 MG/DL; PROSTATIC SPECIFIC AG MONITOR < 0.01 NG/ML (< 4.00); TOTAL PROTEIN 6.7 GM/DL (6.4-8.2)
== END ==
LOC: M LAB 09:44
PROVIDERS: ATTEND Family Medicine
DX: Z00.00 Encounter for general adult medical examination without abnormal findings (principal); I51.9 Heart disease, unspecified; E78.00 Pure hypercholesterolemia, unspecified

== ENCOUNTER → 2022-03-04 | Outpatient (CLI) | payer BC | LOC: M SLEEP HO 12:08 | PROVIDERS: ATTEND Physician Assistant | DX: G47.9 Sleep disorder, unspecified (principal) ==

== ENCOUNTER → 2022-06-30 | Outpatient (REF) | payer BC ==
[~2022-06-30] MED LIST changes: -IBUP-1452 PO; +IBUP-1621 PO
[2022-06-30 17:18] LABS: PROSTATIC SPECIFIC AG MONITOR 0.04 NG/ML (< 4.00)
[2022-06-30 17:22] LABS: ALBUMIN 4.1 G/DL (3.2-5.2); ALKALINE PHOSPHATASE 79 U/L (46-116); ALT/SGPT 31 U/L (7.0-40); AST/SGOT 26 U/L (<34); BILIRUBIN,TOTAL 0.5 MG/DL (0.3-1.2); BLOOD UREA NITROGEN 16 MG/DL (9-23); CALCIUM LEVEL 9.9 MG/DL (8.3-10.6); CARBON DIOXIDE LEVEL 28 MMOL/L (20-31); CHLORIDE LEVEL 106 MMOL/L (98-107); CHOLESTEROL LEVEL 201 MG/DL (<200); CHOLESTEROL RISK RATIO 2.96 (<5); CREATININE FOR GFR 0.91 MG/DL (0.70-1.30); GLOMERULAR FILTRATION RATE > 60.0 (>49); GLUCOSE, FASTING 87 MG/DL (74-106); HDL CHOLESTEROL 67.9 MG/DL (>40); LDL CHOLESTEROL 108.5 MG/DL (<100); MAGNESIUM LEVEL 2.1 MG/DL (1.8-2.4); NON-HDL-C 133.1 MG/DL; POTASSIUM SERUM 4.8 MMOL/L (3.5-5.1); SODIUM LEVEL 142 MMOL/L (136-145); TOTAL PROTEIN 6.9 G/DL (5.7-8.2); TRIGLYCERIDES LEVEL 123 MG/DL (<150)
[2022-06-30 17:23] LABS: BASO # 0.1 10^3/uL (0.0-0.2); BASO % 1.2 % (0.0-1.0); EOS # 0.1 10^3/uL (0.0-0.5); EOS % 2.9 % (0.0-3.0); HEMATOCRIT 45.7 % (42.0-52.0); HEMOGLOBIN 14.8 g/dl (13.5-17.5); LYMPH # 1.5 10^3/uL (1.5-5.0); LYMPH % 29.5 % (24.0-44.0); MEAN CORPUSCULAR HEMOGLOBIN 30.1 pg (27.0-33.0); MEAN CORPUSCULAR HGB CONC 32.4 g/dl (32.0-36.5); MEAN CORPUSCULAR VOLUME 92.9 fl (80.0-96.0); MONO # 0.7 10^3/uL (0.0-0.8); MONO % 13.2 % (2.0-8.0); NEUTROPHILS # 2.6 10^3/uL (1.5-8.5); PLATELET COUNT, AUTOMATED 200 10^3/uL (150-450); RED BLOOD COUNT 4.92 10^6/uL (4.30-6.10); WHITE BLOOD COUNT 4.9 10^3/uL (4.0-10.0)
== END ==
LOC: M SFHCCLAY 09:47
PROVIDERS: ATTEND Family Medicine
DX: E78.00 Pure hypercholesterolemia, unspecified (principal); I51.9 Heart disease, unspecified; Z85.46 Personal history of malignant neoplasm of prostate; I49.8 Other specified cardiac arrhythmias

== ENCOUNTER 2022-07-31 07:05 | Day surgery (SDC) | payer BC ==
[~2022-07-31] VITALS: Ht 170.2 cm; Wt 83.2 kg
[~2022-07-31 07:05] MED LIST changes: +NS 1,000 ML IV ONE
[2022-07-31] MEDS ORDERED: LIDOCAINE 2% 100MG/5ML SDV (FOR ANES.) As Ordered ONE (07:09)
[2022-07-31] MEDS ORDERED: propofoL 200 MG/20 ML VIAL As Ordered ONE (07:09)
[2022-07-31 08:59] VITALS: BP 121/79
== END 2022-07-31 09:21 | disposition home or self-care (01) ==
LOC: M OPP 07:05
PROVIDERS: ATTEND Internal Medicine Gastroenterology
DX: Z12.11 Encounter for screening for malignant neoplasm of colon (principal); Z83.71 Family history of colonic polyps; Z80.0 Family history of malignant neoplasm of digestive organs; K64.8 Other hemorrhoids; K57.30 Diverticulosis of large intestine without perforation or abscess without bleeding; Z79.02 Long term (current) use of antithrombotics/antiplatelets; Z79.1 Long term (current) use of non-steroidal anti-inflammatories (NSAID); Z79.899 Other long term (current) drug therapy

== ENCOUNTER → 2023-07-02 | Outpatient (CLI) | payer BC ==
[~2023-07-02] MED LIST changes: -NS 1,000 ML IV ONE
[2023-07-02 09:39] LABS: BASO % 0.8 % (0.0-1.0); EOS # 0.2 10^3/uL (0.0-0.5); EOS % 3.3 % (0.0-3.0); HEMATOCRIT 45.2 % (42.0-52.0); LYMPH # 1.6 10^3/uL (1.5-5.0); LYMPH % 32.9 % (24.0-44.0); MEAN CORPUSCULAR HEMOGLOBIN 30.7 pg (27.0-33.0); MEAN CORPUSCULAR HGB CONC 33.2 g/dl (32.0-36.5); MEAN CORPUSCULAR VOLUME 92.6 fl (80.0-96.0); MONO # 0.7 10^3/uL (0.0-0.8); MONO % 15.3 % (2.0-8.0); NEUTROPHILS # 2.3 10^3/uL (1.5-8.5); NEUTROPHILS % 47.3 % (36.0-66.0); PLATELET COUNT, AUTOMATED 154 10^3/uL (150-450); RED BLOOD COUNT 4.88 10^6/uL (4.30-6.10); WHITE BLOOD COUNT 4.8 10^3/uL (4.0-10.0)
[2023-07-02 10:38] LABS: ALBUMIN 3.7 G/DL (3.2-5.2); ALKALINE PHOSPHATASE 79 U/L (46-116); ALT/SGPT 63 U/L (7.0-40); AST/SGOT 33 U/L (<34); BILIRUBIN,TOTAL 0.6 MG/DL (0.3-1.2); BLOOD UREA NITROGEN 20 MG/DL (9-23); CALCIUM LEVEL 9.4 MG/DL (8.3-10.6); CARBON DIOXIDE LEVEL 29 MMOL/L (20-31); CHLORIDE LEVEL 107 MMOL/L (98-107); CHOLESTEROL LEVEL 179 MG/DL (<200); CHOLESTEROL RISK RATIO 2.88 (<5); CREATININE FOR GFR 1.02 MG/DL (0.70-1.30); GLOMERULAR FILTRATION RATE > 60.0 (>49); GLUCOSE, FASTING 106 MG/DL (74-106); HDL CHOLESTEROL 62.1 MG/DL (>40); LDL CHOLESTEROL 95.5 MG/DL (<100); NON-HDL-C 116.9 MG/DL; POTASSIUM SERUM 4.8 MMOL/L (3.5-5.1); PROSTATIC SPECIFIC AG MONITOR 0.04 NG/ML (< 4.00); SODIUM LEVEL 139 MMOL/L (136-145); TOTAL PROTEIN 6.5 G/DL (5.7-8.2); TRIGLYCERIDES LEVEL 107 MG/DL (<150)
== END ==
LOC: M LAB 08:13
PROVIDERS: ATTEND Family Medicine
DX: Z00.00 Encounter for general adult medical examination without abnormal findings (principal); Z85.46 Personal history of malignant neoplasm of prostate; E78.00 Pure hypercholesterolemia, unspecified; I51.9 Heart disease, unspecified

== ENCOUNTER → 2023-08-03 | Outpatient (CLI) | payer BC | LOC: M RAD 08:17 | PROVIDERS: ATTEND Physician Assistant | DX: R74.8 Abnormal levels of other serum enzymes (principal) ==

== ENCOUNTER → 2024-01-04 | Outpatient (CLI) | payer BC ==
[~2024-01-04] MED LIST changes: +GABA-1172 PO; -GABA-282 PO
== END ==
LOC: M EKG 12:02
PROVIDERS: ATTEND Registered Nurse
DX: I49.3 Ventricular premature depolarization (principal); R94.31 Abnormal electrocardiogram [ECG] [EKG]

== ENCOUNTER → 2024-01-14 | Outpatient (CLI) | payer BC ==
[2024-01-14 10:18] LABS: ALBUMIN 3.8 G/DL (3.2-5.2); ALKALINE PHOSPHATASE 84 U/L (46-116); ALT/SGPT 28 U/L (7.0-40); AST/SGOT 16 U/L (<34); BILIRUBIN,TOTAL 0.6 MG/DL (0.3-1.2); BLOOD UREA NITROGEN 13 MG/DL (9-23); CALCIUM LEVEL 9.7 MG/DL (8.3-10.6); CARBON DIOXIDE LEVEL 30 MMOL/L (20-31); CHLORIDE LEVEL 110 MMOL/L (98-107); CREATININE FOR GFR 0.94 MG/DL (0.70-1.30); GLOMERULAR FILTRATION RATE > 60.0 (>49); GLUCOSE, FASTING 101 MG/DL (74-106); POTASSIUM SERUM 4.6 MMOL/L (3.5-5.1); SODIUM LEVEL 139 MMOL/L (136-145); TOTAL PROTEIN 6.7 G/DL (5.7-8.2)
== END ==
LOC: M LAB 08:53
PROVIDERS: ATTEND Physician Assistant
DX: R74.01 Elevation of levels of liver transaminase levels (principal)

== ENCOUNTER → 2024-01-17 | Outpatient (CLI) | payer BC | LOC: M PLAIMG 12:29 | PROVIDERS: ATTEND Registered Nurse | DX: I42.9 Cardiomyopathy, unspecified (principal); I49.3 Ventricular premature depolarization; I08.1 Rheumatic disorders of both mitral and tricuspid valves; I27.20 Pulmonary hypertension, unspecified ==

== ENCOUNTER → 2024-07-21 | Outpatient (CLI) | payer BC ==
[2024-07-21 11:42] LABS: ALBUMIN 3.6 G/DL (3.2-5.2); BILIRUBIN,TOTAL 0.5 MG/DL (0.3-1.2); CALCIUM LEVEL 9.4 MG/DL (8.3-10.6); CHOLESTEROL RISK RATIO 2.74 (<5); CREATININE FOR GFR 0.96 MG/DL (0.70-1.30); GLOMERULAR FILTRATION RATE 87.2 (>49); HDL CHOLESTEROL 55.4 MG/DL (>40); NON-HDL-C 96.6 MG/DL; POTASSIUM SERUM 4.6 MMOL/L (3.5-5.1); PSA SCREENING 0.04 NG/ML (< 4.00); TOTAL PROTEIN 6.5 G/DL (5.7-8.2)
== END ==
LOC: M LAB 10:07
PROVIDERS: ATTEND Physician Assistant
DX: E78.00 Pure hypercholesterolemia, unspecified (principal); I51.9 Heart disease, unspecified; I49.8 Other specified cardiac arrhythmias; R74.8 Abnormal levels of other serum enzymes; Z85.46 Personal history of malignant neoplasm of prostate
CPT/HCPCS: 36415; 80053; 80061; 83036; G0103

== ENCOUNTER → 2025-01-11 | Outpatient (CLI) | payer BC | LOC: M SLEEP 20:00 | PROVIDERS: ATTEND Physician Assistant | DX: G47.33 Obstructive sleep apnea (adult) (pediatric) (principal) ==